=== PATIENT | female | born 1970 ===

== ENCOUNTER 2017-06-06 11:48 | Emergency (ER) | payer MEDICAID, SELFPAY ==
[2017-06-06 11:48] VITALS: BMI 27.6
[2017-06-06 12:04] VITALS: TEMP 99.2
--- NOTE | 2017-06-06 12:55 | ED PDOC ---
HPI: Headache Time Seen by Provider: 06/06/17 12:29 Chief Complaint (Nursing): Headache History Per: Patient (47 yo female who presents to the ER with 4 days of persistent SALOMON associated with nausea. Patient has taken tramadol and fioricet w/ o relief. She denies light sensitivity and has noted double vision. She has been found to have a 1.3 cm pituitary adenoma. ) History/Exam Limitations: no limitations Past Medical History Reviewed: Historical Data, Nursing Documentation, Vital Signs Vital Signs: Last Vital Signs Temp 99.2 F 06/06/17 12:01 Pulse 86 06/06/17 12:01 Resp 18 06/06/17 12:01 BP 157/90 H 06/06/17 12:01 Pulse Ox 98 06/06/17 12:01 - Medical History PMH: Depression Denies: Chronic Kidney Disease Other PMH: pituitary adenoma - Surgical History Surgical History: No Surg Hx - Family History Family History: States: No Known Family Hx - Living Arrangements Living Arrangements: With Family - Home Medications Home Medications: Ambulatory Orders Medication Instructions Recorded Fluoxetine Hydrochloride [Prozac] 20 mg PO DAILY 03/03/14 Acetaminophen [Tylenol 325mg tab] 650 mg PO Q4 PRN #0 tab 11/10/14 Clindamycin HCl 600 mg PO Q8 #20 cap 11/10/14 Doxycycline Hyclate [Doxycycline] 100 mg PO BID #14 tab 11/10/14 Naproxen [Naprosyn] 500 mg PO BID PRN #20 tablet 06/06/17 Ondansetron [Zofran] 4 mg PO Q8H #9 tab 06/06/17 - Allergies Allergies/Adverse Reactions: Allergies Allergy/AdvReac Type Severity Reaction Status Date / Time No Known Allergies Allergy Verified 06/06/17 12:01 Review of Systems ROS Statement: Except As Marked, All Systems Reviewed And Found Negative Constitutional: Negative for: Fever, Chills Eyes: Positive for: Vision Change (states double vision) ENT: Negative for: Ear Pain, Ear Discharge Cardiovascular: Negative for: Chest Pain Gastrointestinal: Positive for: Nausea, Vomiting Neurological: Positive for: Headache, Dizziness Psych: Positive for: Depression Physical Exam - Reviewed Nursing Documentation Reviewed: Yes Vital Signs Reviewed: Yes - Physical Exam Appears: Positive for: Well, Non-toxic, No Acute Distress, Uncomfortable Head Exam: Positive for: ATRAUMATIC, NORMAL INSPECTION, NORMOCEPHALIC Skin: Positive for: Normal Color, Warm, DRY Eye Exam: Positive for: Normal appearance, EOMI, PERRL, Other (no diplopia). Negative for: Nystagmus, Periorbital swelling ENT: Positive for: Normal ENT Inspection Neck: Positive for: Normal, Painless ROM Cardiovascular/Chest: Positive for: Regular Rate, Rhythm Respiratory: Positive for: CNT, Normal Breath Sounds Gastrointestinal/Abdominal: Positive for: Normal Exam, Bowel Sounds, Soft Back: Positive for: Normal Inspection Extremity: Positive for: Normal ROM Neurologic/Psych: Positive for: Alert, laundry aide II-XII, Oriented, Gait, Other (no diplopia). Negative for: Motor/Sensory Deficits, Facial Droop - Laboratory Results Result Diagrams: 06/06/17 13:45 06/06/17 13:45 - ECG O2 Sat by Pulse Oximetry: 98 Medical Decision Making Medical Decision Making: patient is feeling better after Toradol and Zofran Disposition - Clinical Impression Clinical Impression: Acute headache - Patient ED Disposition Is Patient to be Admitted: No Doctor Will See Patient In The: Office Counseled Patient/Family Regarding: Diagnosis, Need For Followup, Rx Given - Disposition Referrals: [facility] [Outside] Disposition: Routine/Home Disposition Time: 14:14 Condition: IMPROVED Prescriptions: Naproxen [Naprosyn] 500 mg PO BID PRN #20 tablet PRN Reason: Pain, Moderate (4-7) Ondansetron [Zofran] 4 mg PO Q8H #9 tab Instructions: Acute Headache (ED) Forms: [employer] (Yemeni) - POA Present On Arrival: None
[2017-06-06 14:00] LABS: BASO # 0.1 K/uL (0.0-0.2); BASO % 0.8 % (0.0-2.0); EOS # 0.3 K/uL (0.0-0.7); HEMOGLOBIN 14.6 g/dL (12.0-16.0); LYMPH # 3.4 K/uL (1.0-4.3); LYMPH % 38.8 % (20.0-40.0); MEAN CELL VOLUME 90.9 fl (81.0-99.0); MEAN CORPUSCULAR HEMOGLOBIN 31.2 pg (27.0-31.0); MEAN CORPUSCULAR HGB CONC 34.3 g/dL (33.0-37.0); MONO # 0.5 K/uL (0.0-0.8); MONO % 6.2 % (0.0-10.0); NEUT # 4.3 K/uL (1.8-7.0); NEUT % 50.2 % (50.0-75.0); RBC 4.7 Mil/uL (3.80-5.20); RED CELL DISTRIBUTION WIDTH 13.3 % (11.5-14.5); WHITE BLOOD COUNT 8.7 K/uL (4.8-10.8)
--- NOTE | 2017-06-06 14:03 | CT ---
PROCEDURE: CT HEAD WITHOUT CONTRAST. 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 Radiation dose: Total exam DLP = 772.0 mGy-cm. This CT exam was performed using one or more of the following dose reduction techniques: Automated exposure control, adjustment of the mA and/or kV according to patient size, and/or use of iterative reconstruction technique. FINDINGS: HEMORRHAGE: No intracranial hemorrhage. BRAIN: No mass effect or edema. No evidence of acute infarct. Please note that the pituitary gland is enlarged as noted on MRI of 12/08/2016. It is not grossly changed in overall size when compared to the MRI. VENTRICLES: Unremarkable. No hydrocephalus. CALVARIUM: Unremarkable. PARANASAL SINUSES: Unremarkable as visualized. No significant inflammatory changes. MASTOID AIR CELLS: Unremarkable as visualized. No inflammatory changes. OTHER FINDINGS: None. IMPRESSION: Enlarged pituitary. The remainder of the examination is unremarkable.
[2017-06-06 14:08] LABS: BLOOD UREA NITROGEN 14 mg/dl (7-17); CALCIUM 9.6 mg/dL (8.4-10.2); GFR AFRICAN-AMERICAN > 60; GFR NON-AFRICAN AMERICAN > 60
[2017-06-06 15:32] VITALS: BP 140/82; PULSE 78; RESP 16; O2SAT 99
== END 2017-06-06 15:31 | disposition home or self-care (01) ==
LOC: H.ER 11:48
DX: R51 Headache (principal); D35.2 Benign neoplasm of pituitary gland; F32.9 Major depressive disorder, single episode, unspecified; H53.2 Diplopia
CPT/HCPCS: 70450; 80048; 81025; 85025; 85651; 96374; 96375; 99283; J1885; J2405

== ENCOUNTER 2017-06-10 16:07 | Emergency (ER) | payer MEDICAID ==
[2017-06-10 16:08] VITALS: BMI 27.6
[2017-06-10 16:16] VITALS: BP 140/83; PULSE 93; RESP 16; TEMP 98.3; O2SAT 100
--- NOTE | 2017-06-10 16:57 | ED PDOC ---
HPI: Abdomen Time Seen by Provider: 06/10/17 16:30 Chief Complaint (Nursing): GI Problem Chief Complaint (Provider): Constipation History Per: Patient History/Exam Limitations: no limitations Onset/Duration Of Symptoms: Days (x4) Additional Complaint(s): 47 year old female presents to the emergency department complaining of constipation lasting for 4 days after taking Tramadol for a headache. Reports bleeding from rectum after straining to have a bowel movement. Denies a history of hemorrhoids. Also denies any vomiting or fever. PMD: None Past Medical History Reviewed: Historical Data, Nursing Documentation, Vital Signs Vital Signs: Last Vital Signs Temp 98.3 F 06/10/17 16:14 Pulse 93 H 06/10/17 16:14 Resp 16 06/10/17 16:14 BP 140/83 06/10/17 16:14 Pulse Ox 100 06/10/17 18:49 - Medical History PMH: Depression Denies: Chronic Kidney Disease - Surgical History Surgical History: - Family History Family History: States: Unknown Family Hx - Home Medications Home Medications: Ambulatory Orders Medication Instructions Recorded Fluoxetine Hydrochloride [Prozac] 20 mg PO DAILY 03/03/14 Acetaminophen [Tylenol 325mg tab] 650 mg PO Q4 PRN #0 tab 11/10/14 Clindamycin HCl 600 mg PO Q8 #20 cap 11/10/14 Doxycycline Hyclate [Doxycycline] 100 mg PO BID #14 tab 11/10/14 Naproxen [Naprosyn] 500 mg PO BID PRN #20 tablet 06/06/17 Ondansetron [Zofran] 4 mg PO Q8H #9 tab 06/06/17 Hard Fat/Phenylephrine Glen 1 sup RC DAILY #7 sup 06/10/17 [Anusol Suppository] Polyethylene Glycol 3350 [Miralax] 17 gm PO DAILY #54 ml 06/10/17 - Allergies Allergies/Adverse Reactions: Allergies Allergy/AdvReac Type Severity Reaction Status Date / Time No Known Allergies Allergy Verified 06/06/17 12:01 Review of Systems ROS Statement: Except As Marked, All Systems Reviewed And Found Negative Constitutional: Negative for: Fever Gastrointestinal: Positive for: Constipation, Other (Rectal Bleeding). Negative for: Vomiting Physical Exam - Reviewed Nursing Documentation Reviewed: Yes Vital Signs Reviewed: Yes - Physical Exam Appears: Positive for: Non-toxic, No Acute Distress Head Exam: Positive for: ATRAUMATIC, NORMAL INSPECTION, NORMOCEPHALIC Skin: Positive for: Normal Color, Warm, DRY Eye Exam: Positive for: EOMI, Normal appearance, PERRL Neck: Positive for: Normal, Painless ROM Cardiovascular/Chest: Positive for: Regular Rate, Rhythm. Negative for: Murmur Respiratory: Positive for: Normal Breath Sounds. Negative for: Accessory Muscle Use, Respiratory Distress Gastrointestinal/Abdominal: Positive for: Normal Exam, Soft. Negative for: Tenderness Back: Positive for: Normal Inspection Rectal: Positive for: Hemorrhoids (Small hemorrhoid noted at 12:00, no active bleeding), Other (Stool impaction noted, distal to fingertip ) Extremity: Positive for: Normal ROM Neurologic/Psych: Positive for: Alert, Oriented - Laboratory Results Result Diagrams: 06/10/17 16:57 - ECG O2 Sat by Pulse Oximetry: 100 (RA) Pulse Ox Interpretation: Normal - Progress ED Course And Treament: FLEET ENEMA GIVEN. PATIENT FEELS SHE DID NOT USE PROPERLY. REPEAT FLEETS WITH MINIMAL IMPROVEMENT. RE-EXAMINED. NONTENDER ABDOMEN CBC WNL. WILL GIVE MIRALAX/ANUSOL AND GI FOLLOW UP. ADVISED RETURN TO ED FOR FEVER/INCREASED ABD PAIN. Medical Decision Making Medical Decision Making: Time: 16:34 Initial Plan: --CBC with Differential --Fleet Enema 135 mL SD x2 --Occult Blood, Stool Labs Reviewed: Stool negative. Otherwise, labs are wnl including hemoglobin. Time: 17:34 Patient is medically stable. Will discharge with rx's for Miralax and suppositories. Scribe Attestation: Documented by Jennifer Rodríguez, acting as a scribe for Cathy De León PA-C Provider Scribe Attestation: All medical record entries made by the Scribe were at my direction and personally dictated by me. I have reviewed the chart and agree that the record accurately reflects my personal performance of the history, physical exam, medical decision making, and the department course for this patient. I have also personally directed, reviewed, and agree with the discharge instructions and disposition. Disposition - Clinical Impression Clinical Impression: Constipation, Rectal bleed - Patient ED Disposition Is Patient to be Admitted: No Counseled Patient/Family Regarding: Diagnosis, Need For Followup, Rx Given - Disposition Referrals: Jerry White MD [Staff Provider] - Disposition: Routine/Home Disposition Time: 17:34 Condition: FAIR Prescriptions: Hard Fat/Phenylephrine Glen [Anusol Suppository] 1 sup RC DAILY #7 sup Polyethylene Glycol 3350 [Miralax] 17 gm PO DAILY #54 ml Instructions: Constipation (DC), Rectal Bleeding (ED), High Fiber Diet (ED) Forms: [facility] (Spanish) Print Language: AMHARIC
[2017-06-10 17:03] LABS: BASO # 0.1 K/uL (0.0-0.2); EOS # 0.2 K/uL (0.0-0.7); HEMOGLOBIN 14.8 g/dL (12.0-16.0); LYMPH # 2.2 K/uL (1.0-4.3); LYMPH % 23.1 % (20.0-40.0); MEAN CELL VOLUME 90.3 fl (81.0-99.0); MEAN CORPUSCULAR HEMOGLOBIN 30.6 pg (27.0-31.0); MEAN CORPUSCULAR HGB CONC 33.8 g/dL (33.0-37.0); MEAN PLATELET VOLUME 7.8 fl (7.2-11.7); MONO # 0.6 K/uL (0.0-0.8); MONO % 6.3 % (0.0-10.0); NEUT # 6.3 K/uL (1.8-7.0); NEUT % 67.6 % (50.0-75.0); NRBC % 0.1 % (0.0-0.0); RBC 4.84 Mil/uL (3.80-5.20); WHITE BLOOD COUNT 9.4 K/uL (4.8-10.8)
== END 2017-06-10 18:11 | disposition home or self-care (01) ==
LOC: H.ER 16:07
DX: K59.00 Constipation, unspecified (principal); K62.5 Hemorrhage of anus and rectum; F32.9 Major depressive disorder, single episode, unspecified
CPT/HCPCS: 85025; 99283; G0328

== ENCOUNTER → 2017-06-27 | Day surgery (SDC) | payer MEDICAID, SELFPAY ==
[~2017-06-27] MED LIST: Lactated Ringer's 1,000 ML IV ONE; Lactated Ringer's 1,000 ML IV SCH; Lidocaine 1% Inj (20ml) ONE; Midazolam 2 MG/2 ML VIAL ONE; Propofol 10 mg/ml Inj (20 ML) ONE; Sodium Chloride 0.9% 50 ML IV ONE
[2017-06-27 07:39] VITALS: BMI 30.2
--- NOTE | 2017-06-27 10:22 | CP.SDSHP ---
Same Day Surgery H & P - History Proposed Procedure: ct guided left adrenal mass biopsy Pre-Op Diagnosis: indeterminate left adrenal mass - Allergies Allergies: Allergies No Known Allergies Allergy (Verified 06/06/17 12:01) - Physical Exam Vital Signs: Vital Signs 06/27/17 06/27/17 06/27/17 07:40 07:42 09:20 Temperature 98.8 F 98.2 F Pulse Rate 79 79 87 Respiratory 20 17 Rate Blood Pressure 135/84 156/96 H O2 Sat by Pulse 98 100 Oximetry - Impression Impression: 47 yo female w/ indeterminate left adrenal mass; plan ct-guided core biopsy - Date & Time Date: 06/27/17 Time: 09:00 Short Stay Discharge - Short Stay Discharge Admitting Diagnosis/Reason for Visit: BX OF ADRENAL MASS Disposition: HOME/ ROUTINE Referrals: Vi Long MD [Primary Care Provider] -
--- NOTE | 2017-06-27 10:23 | PCM.SURG1 ---
Surgeon's Initial Post Op Note - Surgeon's Notes Surgeon: Rivas Womack MD [employer]: None Type of Anesthesia: MAC Pre-Operative Diagnosis: Indeterminate left adrenal mass Operative Findings: left adrenal mass Post-Operative Diagnosis: same Operation Performed: CT guided LEFT adrenal mass biopsy Specimen/Specimens Removed: 20 gauge core biopsy of left adrenal mass x2 Estimated Blood Loss: EBL {In ML}: 10 Date of Surgery/Procedure: 06/27/17 Time of Surgery/Procedure: 10:00
[2017-06-27 13:43] VITALS: BP 143/80; PULSE 78; RESP 18; TEMP 98.5; O2SAT 98
--- NOTE | 2017-06-29 13:34 | CT ---
PROCEDURE: CT-GUIDED LEFT ADRENAL MASS BIOPSY CLINICAL HISTORY: 47-year-old female with indeterminate left adrenal mass is referred to Interventional Radiology for percutaneous image-guided core needle biopsy. COMPARISON: MRI of the abdomen dated 03/28/2017; CT scan of the abdomen and pelvis dated 03/15/2017 PROCEDURE: 1. Focused CT of the left flank. 2. CT-guided core needle biopsy of the left adrenal mass. PRE-PROCEDURE FINDINGS: 1. Left adrenal mass as visualized on recent CT and MRI imaging POST-PROCEDURE FINDINGS: 1. No evidence of post-procedural complication. INTERVENTIONAL RADIOLOGIST: Rivas Womack M.D. (the attending was present for the entire procedure) ANESTHESIA: Provided by the attending anesthesiologist. Sedation was supervised by the anesthesiology attending with the presence of independent radiology nursing monitoring. Physiological data monitoring was performed throughout the entire procedure. The patient's blood pressure, EKG and pulse oximetry were recorded. The patient tolerated the procedure and sedation without untoward reactions. The intra-procedural sedation time was 30 minutes. MEDICATIONS: Lidocaine 1% for local subcutaneous analgesia. COMPLICATIONS: None. PROCEDURE DESCRIPTION AND FINDINGS: The risks, benefits, alternatives and possible complications of the procedure were fully discussed; all questions were answered and informed consent was obtained. The patient was brought into the interventional suite and a pre-procedure 'time-out' was performed. The patient was placed on the CT table in the prone position. The lesion was localized under CT-guidance and a kareen was made on the skin site overlying the lesion. The left flank was prepped and draped in the usual sterile fashion. Maximum sterile barrier precautions were maintained throughout the entire procedure. Preliminary focused CT images of the left flank again demonstrate a left adrenal mass as visualized on recent CT and MRI imaging. Following subcutaneous infiltration of lidocaine 1% for local analgesia, under CT-guidance, a 19-gauge trocar needle was advanced into the left adrenal mass. The inner stylet was carefully removed. A 20-gauge biopsy device was coaxially loaded into the introducer needle and a total of 2 core needle biopsies were obtained. The biopsy device and trocar needle were removed. Adequate hemostasis was achieved utilizing manual compression. A sterile adhesive dressing was applied over the puncture site. Post-procedure imaging demonstrated no complications. The patient tolerated the procedure well without immediate post-procedure complications and was transferred to the interventional radiology recovery area in stable condition. IMPRESSION: Successful CT-guided core needle biopsy of the left adrenal mass. A total of 2 samples were obtained.
== END | disposition home or self-care (01) ==
LOC: H.OPSURG 07:13
PROVIDERS: ATTEND Specialist
DX: E27.9 Disorder of adrenal gland, unspecified (principal)
CPT/HCPCS: 49180; 77012; 88305; J1170; J2001; J2250; J2704; J3010; J7120